=== PATIENT | female | born 1980 | race Caucasian/White ===

== ENCOUNTER 2022-12-23 20:25 | Emergency (ER) | payer SELFPAY ==
[~2022-12-23] VITALS: Ht 162.6 cm; Wt 92.9 kg
[2022-12-23 20:28] VITALS: BP 134/61
[2022-12-23] MEDS ORDERED: TRAZ-252 PO (21:02)
[2022-12-23] MEDS ORDERED: LEXA1TAB PO (21:02)
[2022-12-23] MEDS ORDERED: WELLTAB38 PO (21:02)
[2022-12-23] MEDS ORDERED: PROA1AER2 INH (21:04)
== END 2022-12-24 04:25 | disposition left against medical advice (07) ==
LOC: M ED 20:25
DX: Z53.21 Procedure and treatment not carried out due to patient leaving prior to being seen by health care provider (principal)

== ENCOUNTER 2024-04-12 11:33 | Emergency (ER) | payer OTHER, SELFPAY ==
[~2024-04-12] VITALS: Ht 162.6 cm; Wt 86.1 kg
[~2024-04-12 11:33] MED LIST: LEXA1TAB PO; PROA1AER2 INH; TRAZ-252 PO; WELLTAB38 PO
[2024-04-12 16:20] LABS: BASO % 0.5 % (0.0-1.0); EOS # 0.3 10^3/uL (0.0-0.5); HEMOGLOBIN 7.6 g/dl (12.0-15.5); LYMPH # 1.3 10^3/uL (1.5-5.0); MEAN CORPUSCULAR HEMOGLOBIN 17.8 pg (27.0-33.0); MEAN CORPUSCULAR HGB CONC 28.1 g/dl (32.0-36.5); MEAN CORPUSCULAR VOLUME 63.1 fl (80.0-96.0); MONO # 0.5 10^3/uL (0.0-0.8); MONO % 9.2 % (2.0-8.0); NEUTROPHILS # 3.6 10^3/uL (1.5-8.5); NEUTROPHILS % 63.1 % (36.0-66.0); PLATELET COUNT, AUTOMATED 389 10^3/uL (150-450); RED BLOOD COUNT 4.28 10^6/uL (4.00-5.40); WHITE BLOOD COUNT 5.8 10^3/uL (4.0-10.0)
[2024-04-12 16:31] LABS: INR 0.97; PROTHROMBIN TIME 12.6 SECONDS (12.5-14.5)
[2024-04-12] MEDS: ACETAMINOPHEN *IV* 1,000 MG in IV 1 EA IV ONE (16:49)
[2024-04-12 16:50] LABS: LIPASE 28 U/L (12-53)
[2024-04-12 16:52] LABS: ALBUMIN 3.7 G/DL (3.2-5.2); ALKALINE PHOSPHATASE 58 U/L (46-116); ALT/SGPT 27 U/L (7.0-40); AST/SGOT 25 U/L (<34); BILIRUBIN,DIRECT 0.1 MG/DL (<0.4); BILIRUBIN,TOTAL 0.6 MG/DL (0.3-1.2); CK-MB VALUE MASS < 1.0 NG/ML (<3.6); TOTAL PROTEIN 6.2 G/DL (5.7-8.2)
[2024-04-12 17:07] LABS: CPK CREATINE PHOSPHOKINASE 64 U/L (34-145); MB/CK RELATIVE INDEX 1.56 (< OR =4)
[2024-04-12 17:54] LABS: CK-MB VALUE MASS < 1.0 NG/ML (<3.6)
[2024-04-12 17:55] LABS: CPK CREATINE PHOSPHOKINASE 56 U/L (34-145); MB/CK RELATIVE INDEX 1.78 (< OR =4)
[2024-04-12 17:59] LABS: THYROID STIMULATING HORMONE 1.132 uIU/ML (0.55-4.78)
[2024-04-12] MEDS: methocarbamoL 500 MG TAB PO ONE (18:41)
[2024-04-12] MEDS ORDERED: ISOVUE-370 76% 100ML VIAL As Ordered ONE (19:52)
[2024-04-12] MEDS: KETOROLAC 30 MG/ML 1ML VIAL IV ONE (20:38)
[2024-04-12] MEDS ORDERED: METH-1164 PO (21:37)
[2024-04-12 21:58] VITALS: BP 139/80; TEMP 97.3; O2SAT 100
== END 2024-04-12 21:59 | disposition home or self-care (01) ==
LOC: M ED 11:33
DX: R07.89 Other chest pain (principal); J45.909 Unspecified asthma, uncomplicated; Z79.51 Long term (current) use of inhaled steroids; Z79.899 Other long term (current) drug therapy
CPT/HCPCS: 71045; 71275; 80047; 80076; 82550; 82553; 83690; 84439; 84443; 84484; 84702; 85025; 85379; 85610; 93005; 93041; 94760; 96374; 96375; 99284; J0131; J1885; Q9967

== ENCOUNTER 2024-04-16 17:05 | Emergency (ER) | payer OTHER ==
[~2024-04-16] VITALS: Ht 162.6 cm; Wt 87.1 kg
[~2024-04-16 17:05] MED LIST changes: +METH-1164 PO
[2024-04-16] MEDS ORDERED: VYVA50CA4 PO (17:24)
[2024-04-16] MEDS ORDERED: NALT50TA4 PO (17:25)
[2024-04-16 18:18] LABS: BASO % 0.7 % (0.0-1.0); EOS # 0.3 10^3/uL (0.0-0.5); EOS % 4.8 % (0.0-3.0); HEMATOCRIT 25.6 % (36.0-47.0); HEMOGLOBIN 7.2 g/dl (12.0-15.5); LYMPH # 1.1 10^3/uL (1.5-5.0); LYMPH % 19.3 % (24.0-44.0); MEAN CORPUSCULAR HEMOGLOBIN 17.9 pg (27.0-33.0); MEAN CORPUSCULAR HGB CONC 28.1 g/dl (32.0-36.5); MEAN CORPUSCULAR VOLUME 63.5 fl (80.0-96.0); MONO # 0.4 10^3/uL (0.0-0.8); MONO % 7.6 % (2.0-8.0); NEUTROPHILS # 3.8 10^3/uL (1.5-8.5); NEUTROPHILS % 67.2 % (36.0-66.0); PLATELET COUNT, AUTOMATED 349 10^3/uL (150-450); RED BLOOD COUNT 4.03 10^6/uL (4.00-5.40); WHITE BLOOD COUNT 5.7 10^3/uL (4.0-10.0)
[2024-04-16 18:32] LABS: INR 0.95; PARTIAL THROMBOPLASTIN TIME 21.9 SECONDS (24.8-34.2); PROTHROMBIN TIME 12.5 SECONDS (12.5-14.5)
[2024-04-16 18:50] LABS: LIPASE 31 U/L (12-53)
[2024-04-16 18:51] LABS: IRON (FE) 8 UG/DL (50-170)
[2024-04-16 18:52] LABS: ALBUMIN 3.6 G/DL (3.2-5.2); ALKALINE PHOSPHATASE 58 U/L (46-116); ALT/SGPT 29 U/L (7.0-40); AST/SGOT 20 U/L (<34); BILIRUBIN,DIRECT 0.1 MG/DL (<0.4); BILIRUBIN,TOTAL 0.4 MG/DL (0.3-1.2); CK-MB VALUE MASS < 1.0 NG/ML (<3.6); PERCENT SATURATION 1.8 % (13.2-45.0); TOTAL IRON BINDING CAPACITY 457 UG/DL (250-425); TOTAL PROTEIN 6.2 G/DL (5.7-8.2)
[2024-04-16 18:54] LABS: FERRITIN 1.6 NG/ML (7.3-270.7); VITAMIN B12 LEVEL 1330 PG/ML (211-911)
[2024-04-16 18:57] LABS: CPK CREATINE PHOSPHOKINASE 67 U/L (34-145); FOLATE > 24.0 NG/ML (>5.4); MB/CK RELATIVE INDEX 1.49 (< OR =4)
[2024-04-16 20:05] VITALS: BP 122/73; TEMP 98; O2SAT 100
== END 2024-04-16 20:07 | disposition home or self-care (01) ==
LOC: M ED 17:05
DX: D50.8 Other iron deficiency anemias (principal); J45.909 Unspecified asthma, uncomplicated; Z79.51 Long term (current) use of inhaled steroids; Z79.899 Other long term (current) drug therapy

== ENCOUNTER 2024-05-04 13:31 | Outpatient (CLI) | payer OTHER ==
[~2024-05-04 13:31] MED LIST changes: +ALBUTEROL SULFATE 2.5MG/0.5ML INH NEB SOLN INH PRN; +EPINEPHrine INJ 1 MG/ML 1ML AMP IM PRN; +NALT50TA4 PO; +VYVA50CA4 PO; +diphenhydrAMINE 50MG/ML VIAL IV PRN; +methylPREDNISolone 125MG 2ML VIAL IV PRN
[2024-05-04] MEDS ORDERED: NS 1,000 ML IV SCH (14:00)
[2024-05-04 14:05] VITALS: BP 137/69; O2SAT 98
[2024-05-04] MEDS: FERRIC CARBOXYMALTOSE INJ 750 MG in NS 250 ML (>50kg) IV ONE (14:16)
[2024-05-04 15:30] VITALS: BP 122/58; O2SAT 99
== END 2024-05-04 15:50 ==
LOC: M INFU 13:31
PROVIDERS: ATTEND Internal Medicine
DX: D50.9 Iron deficiency anemia, unspecified (principal)
CPT/HCPCS: 96365; J1439

== ENCOUNTER 2024-05-12 14:00 | Outpatient (CLI) | payer OTHER ==
[2024-05-12 14:00] VITALS: BP 122/66; O2SAT 100
[~2024-05-12 14:00] MED LIST changes: +NS 1,000 ML IV SCH
[2024-05-12] MEDS: FERRIC CARBOXYMALTOSE INJ 750 MG in NS 250 ML (>50kg) IV ONE (14:04)
[2024-05-12 15:16] VITALS: BP 105/54; O2SAT 100
== END 2024-05-12 15:10 ==
LOC: M INFU 14:00
PROVIDERS: ATTEND Internal Medicine
DX: D50.9 Iron deficiency anemia, unspecified (principal)
CPT/HCPCS: 96365; J1439